=== PATIENT | male | born 1980 | race Asian ===

== ENCOUNTER 2018-09-19 01:11 | Emergency (ER) | payer SELFPAY ==
[~2018-09-19] VITALS: Ht 177.8 cm; Wt 81.6 kg
[~2018-09-19 01:11] MED LIST: IBUPROFEN600 MG ORAL
--- NOTE | 2018-09-19 01:20 | Emergency Room Report ---
History of Present Illness General Chief Complaint: Alcohol Intoxication Source: EMS Present Illness HPI Is a 37-year-old [place] male brought in for alcohol intoxication. History is limited this patient because she's not responsive right now. He was wandering on the street and bystander called 911. When EMS got there he was combative and was not cooperating. Did give his name and admit to drinking alcohol. Because of his combativeness, he was restrained and given Versed 5 mg IM. Now he is sedated and sleeping. Unable to get any other history. History is from EMS. Allergies: Coded Allergies: No Known Allergies (Unverified , 12/25/12) Patient History Past Medical History: see triage record, old chart reviewed, unable to obtain Past Surgical History: unable to obtain Pertinent Family History: unable to obtain Social History: Reports: alcohol use Immunizations: other Reviewed Nursing Documentation: PMH: Agreed; PSxH: Agreed Nursing Documentation-PMH Past Medical History Deferred: Pt Cognitively Impaired Past Medical History: No Stated History Review of Systems All Other Systems: limited - Secondary to condition Physical Exam Vital Signs Date Time Temp Pulse Resp B/P (MAP) Pulse Ox O2 Delivery O2 Flow Rate FiO2 09/19/18 01:11 98.2 107 20 101/68 99 Room Air Sp02 EP Interpretation: reviewed, normal General Appearance: well appearing, no apparent distress, other - Sleeping Head: normocephalic, atraumatic Eyes: bilateral eye PERRL, bilateral eye EOMI ENT: hearing grossly normal, normal pharynx Neck: full range of motion, supple, no meningismus Respiratory: chest non-tender, lungs clear, normal breath sounds Cardiovascular #1: regular rate, rhythm, no murmur Gastrointestinal: normal bowel sounds, non tender, no mass, no organomegaly, no bruit, non-distended Musculoskeletal: back normal, normal range of motion Neurologic: grossly normal - Withdrawal to painful stimuli to all 4 extremities Psychiatric: mood/affect normal Skin: warm/dry Medical Decision Making Diagnostic Impression: Primary Impression: Psychosis Qualified Codes: F23 - Brief psychotic disorder Additional Impression: Amphetamine abuse ER Course patient presents with acute psychosis secondary to amphetamine abuse. He was sedated by EMS with Versed. Initially, he was said that he had alcohol but alcohol is negative. CT scan is negative for any bleed. Urine drug screen is positive for amphetamine. Also positive for benzodiazepine but I suspect this is from Versed. We'll observe him until clinical sobriety. We'll discharge home once he stable. CT/MRI/US Diagnostic Results CT/MRI/US Diagnostic Results : Imaging Test Ordered: CT head Impression negative per radiologist Last Vital Signs Date Time Temp Pulse Resp B/P (MAP) Pulse Ox O2 Delivery O2 Flow Rate FiO2 09/19/18 01:11 98.2 107 20 101/68 99 Room Air Status: improved Disposition: HOME, SELF-CARE Condition: Stable Referrals: NOT CHOSEN IPA/,REFERRING (PCP) Additional Instructions: Stop using drugs. Follow-up with rehabilitation. Return if worse. Mateusz Burnette MD Sep 19, 2018 01:20
[2018-09-19 01:35] VITALS: BP 110/51
[2018-09-19] MEDS ORDERED: Naloxone 1mg/ml 2ml IVP ONE (02:15)
[2018-09-19 02:30] VITALS: BP 120/60
[2018-09-19 04:30] VITALS: BP 118/66
[2018-09-19 05:00] VITALS: BP_SYST 110; BP_DIAS 51; BP_DIAS 67
--- NOTE | 2018-09-19 10:12 | Diagnostic Imaging Report ---
Indication: Altered mental status Technique: Contiguous 5 mm thick transaxial imaging of the head obtained in a Siemens Sensation [address] scanner. Soft tissue and bone windows generated. Automatic Exposure Control was utilized. Total Dose length Product (DLP): 1608.[address] Dose Index Volume (CTDIvol): 70.38 mGy Comparison: none Findings: The size and configuration of the cortical sulci, basal cisterns, and ventricles are within normal limits for age. There is no mass effect, midline shift, or edema identified. There is no evidence of acute hemorrhage or abnormal intra-axial or extra-axial fluid collections. The bones and soft tissues are unremarkable. Impression: No mass effect, edema or acute bleed. [facility] has communicated the preliminary results to the Emergency Department. Their findings are largely concordant with this report. The CT scanner at [facility] is accredited by the [employer] and the scans are performed using dose optimization techniques as appropriate to a performed exam including Automatic Exposure control.
== END 2018-09-19 05:00 | disposition home or self-care (01) ==
LOC: EDBD 01:11 → EMR 01:17
DX: F23 Brief psychotic disorder (principal); F15.10 Other stimulant abuse, uncomplicated; R41.82 Altered mental status, unspecified
CPT/HCPCS: 36415; 70450; 80307; 96374; 99284; G0480; J2310; 80329